=== PATIENT | male | born 1985 | race Hispanic/Latino ===

== ENCOUNTER 2016-08-23 14:24 | Emergency (ER) | payer SELFPAY | END 2016-08-23 14:25 | disposition left against medical advice (07) | LOC: ED 14:24 | DX: F41.0 Panic disorder [episodic paroxysmal anxiety] (principal); F41.9 Anxiety disorder, unspecified; Z53.21 Procedure and treatment not carried out due to patient leaving prior to being seen by health care provider ==

== ENCOUNTER 2016-09-08 16:41 | Emergency (ER) | payer SELFPAY ==
[2016-09-08 16:46] VITALS: BP 124/85
== END 2016-09-09 03:02 | disposition left against medical advice (07) ==
LOC: ED 16:41
DX: R36.9 Urethral discharge, unspecified (principal); R30.0 Dysuria; Z53.21 Procedure and treatment not carried out due to patient leaving prior to being seen by health care provider

== ENCOUNTER 2016-09-09 14:44 | Emergency (ER) | payer SELFPAY ==
[2016-09-09 15:37] VITALS: BP 123/85
--- NOTE | 2016-09-09 17:51 | Emergency Department Report ---
Chief Complaint: Urogenital-Male Stated Complaint: PENIS DISCHARGE Time Seen by Provider: 09/09/16 17:11 - HPI History of Present Illness: 31-year-old male presents today with with penile discharge 3 days. Patient states that his ex is positive for gonorrhea. Positive for minimal dysuria. Denies increased urinary frequency or urgency. Positive for history of chlamydia. Denies fever, chills, nausea, vomiting, chest pain, shortness of breath, abdominal pain. - ROS Review of Systems: Per HPI - Exam Vital Signs: Vital Signs 09/09/16 15:34 Temperature 98.4 F Pulse Rate 108 H Respiratory 18 Rate Blood Pressure 123/85 O2 Sat by Pulse 98 Oximetry Physical Exam: General: 31-year-old male in no acute distress. Well-developed, well-nourished. CV: Regular rate and rhythm. Lungs: Clear to auscultation bilaterally. Abdomen: No tenderness to palpation. No guarding or rebound tenderness. Normal bowel sounds. Negative for CVA tenderness bilaterally. MSE screening note: Focused history and physical exam performed. Due to findings the following was ordered: ED Disposition for MSE Disposition: MEDICAL SCREENING EXAM-LEFT Condition: Stable Referrals: PRIMARY CARE, [Primary Care Provider] - 3-5 Days
== END 2016-09-09 18:04 | disposition left against medical advice (07) ==
LOC: ED 14:44
DX: R36.9 Urethral discharge, unspecified (principal); Z53.21 Procedure and treatment not carried out due to patient leaving prior to being seen by health care provider

== ENCOUNTER 2016-09-17 19:16 | Emergency (ER) | payer SELFPAY ==
[2016-09-17 19:54] VITALS: BP 147/97
[2016-09-17 22:09] LABS: Urine Drugs of Abuse Note Disclamer
[2016-09-17 22:20] LABS: Bilirubin,Urine NEG (Negative); Blood,Urine SM (Negative); Ketones,Urine NEG (Negative); Leukocyte Esterase,Urine NEG (Negative); Mucus,Urine FEW /HPF; Nitrite,Urine NEG (Negative); Protein,Urine <15 mg/dL mg/dL (Negative); Urobilinogen,Urine < 2.0 mg/dL (<2.0)
--- NOTE | 2016-09-20 12:19 | ED Elopement Review ---
ED Pt Elopement review - Results review Lab results: Laboratory Tests 09/17/16 09/17/16 21:45 21:45 Urine Color Straw Urine Turbidity Clear Urine pH 6.0 Ur Specific [place] 1.006 Urine Protein <15 mg/dl Urine Glucose (UA) Neg Urine Ketones Neg Urine Blood Sm Urine Nitrite Neg Urine Bilirubin Neg Urine Urobilinogen < 2.0 Ur Leukocyte Esterase Neg Urine WBC (Auto) 1.0 Urine RBC (Auto) 1.0 U Epithel Cells (Auto) < 1.0 Urine Mucus Few Urine Opiates Screen Presumptive negative Urine Methadone Screen Presumptive negative Ur Barbiturates Screen Presumptive negative Ur Phencyclidine Scrn Presumptive negative Ur Amphetamines Screen Presumptive negative U Benzodiazepines Scrn Presumptive negative Urine Cocaine Screen Presumptive negative U Marijuana (THC) Screen Presumptive negative Drugs of Abuse Note Disclamer - Call Back decision Pt Call Back Decision: No action required
== END 2016-09-17 22:00 | disposition left against medical advice (07) ==
LOC: ED 19:16 → EEVIPCON 19:16 → ED 22:00
DX: Z00.8 Encounter for other general examination (principal); Z53.21 Procedure and treatment not carried out due to patient leaving prior to being seen by health care provider
CPT/HCPCS: 80307; 81001